=== PATIENT | male | born 1995 | race Native Hawaiian/Other Pacific Islander ===

== ENCOUNTER 2018-02-20 11:36 | Outpatient (CLI) | payer BC, OTHER ==
[2018-02-20 12:12] LABS: BASOPHILS % (AUTO) 0.4 % (0.0-2.0); EOSINOPHILS # (AUTO) 0.1 K/uL (0.0-0.7); EOSINOPHILS % (AUTO) 1.3 % (0.0-7.0); HEMATOCRIT 42.6 % (36.7-47.1); HEMOGLOBIN 13.3 g/dL (12.5-16.3); LYMPHOCYTES # (AUTO) 1.5 K/uL (20.0-40.0); LYMPHOCYTES % (AUTO) 36.4 % (20.5-51.5); MEAN CORPUSCULAR HEMOGLOBIN 20.2 uug (23.8-33.4); MEAN CORPUSCULAR HGB CONC 31 g/dL (32.5-36.3); MEAN CORPUSCULAR VOLUME 64.5 fL (73.0-96.2); MONOCYTES # (AUTO) 0.4 K/uL (2.0-10.0); MONOCYTES % (AUTO) 9.5 % (0.0-11.0); NEUTROPHILS # (AUTO) 2.1 K/uL (1.8-8.9); NEUTROPHILS % (AUTO) 52.4 % (38.5-71.5); PLATELET COUNT (AUTO) 242 K/uL (152-348)
[2018-02-20 12:13] LABS: RED BLOOD CELL COUNT(AUTO) 6.61 MIL/uL (4.06-5.63)
[2018-02-20 12:28] LABS: *BILIRUBIN,URIN NEGATIVE (NEGATIVE); *BLOOD, URINE NEGATIVE (NEGATIVE); *CLARITY,URINE CLEAR (CLEAR); *COLOR,URINE YELLOW (YELLOW); *KETONES,URINE NEGATIVE (NEGATIVE); *PROTEIN,URINE NEGATIVE (NEGATIVE); *UROBILINOGEN,URINE 0.2 E.U./dl (NORMAL); LEUKOCYTE ESTERASE ,URINE NEGATIVE (NEGATIVE); NITRITE, URINE NEGATIVE (NEGATIVE); UGLUCOSE NEGATIVE (NEGATIVE)
[2018-02-20 12:39] LABS: BACTERIA,URINE NONE SEEN /HPF (NONE SEEN); RBC,URINE 0-3 /HPF (0-3); SQUAMOUS EPITHELIAL CELL,UR FEW /HPF (NONE SEEN); WBC,URINE 0-3 /HPF (0-3)
[2018-02-20 12:43] LABS: THYROID STIMULATING HORMONE 1.927 mIU/mL (0.358-3.740)
[2018-02-20 13:01] LABS: BILIRUBIN,TOTAL 0.8 mg/dL (0.2-1.0); CREATININE 0.8 mg/dL (0.6-1.3); POTASSIUM 4.8 mmol/L (3.5-5.1); TOTAL PROTEIN, SERUM 7.6 g/dL (6.4-8.2); URIC ACID 5.9 mg/dL (3.5-7.2)
[2018-02-20 13:24] LABS: EOSINOPHILS % (MANUAL) 2 % (0-8); LYMPHOCYTES % (MANUAL) 35 % (20-40); MONOCYTES % (MANUAL) 12 % (2-10); NEUTROPHILS % (MANUAL) 51 % (42-75)
[2018-02-21 05:10] LABS: VIT D, 25-HYDROXY 28.4 ng/mL (30.0-100.0)
== END 2018-02-21 23:59 | disposition home or self-care (01) ==
LOC: LAB 11:36
DX: Z00.01 Encounter for general adult medical examination with abnormal findings (principal)
CPT/HCPCS: 36415; 82306; 84443; 84480; 84550; 85025

== ENCOUNTER 2018-04-09 17:11 | Emergency (ER) | payer BC ==
[~2018-04-09] VITALS: Ht 172.7 cm; Wt 64.4 kg
--- NOTE | 2018-04-09 17:56 | NUR ---
PT WAS EVALUATED BY DR MCCLELLAN. PT WAS D/C TO HOME. D/C INS TRUCTIONS GIVEN TO THE PT.
[2018-04-09 17:57] VITALS: BP 119/74
== END 2018-04-09 17:58 | disposition home or self-care (01) ==
LOC: ER 17:13
DX: S00.522A Blister (nonthermal) of oral cavity, initial encounter (principal); X58.XXXA Exposure to other specified factors, initial encounter; Y93.89 Activity, other specified; Y92.89 Other specified places as the place of occurrence of the external cause; Y99.8 Other external cause status
CPT/HCPCS: A4663

== ENCOUNTER 2018-09-19 18:22 | Emergency (ER) | payer BC, OTHER ==
[~2018-09-19] VITALS: Ht 172.7 cm; Wt 62.6 kg
--- NOTE | 2018-09-19 19:15 | NUR ---
Patient discharged to home in stable conditon. Written and verbal after care instructions given. Patient verbalizes understanding of instructions.
== END 2018-09-19 19:16 | disposition home or self-care (01) ==
LOC: ER 18:26
DX: J20.9 Acute bronchitis, unspecified (principal); K64.9 Unspecified hemorrhoids; B37.2 Candidiasis of skin and nail
CPT/HCPCS: 71045; A4663

== ENCOUNTER 2018-12-09 20:53 | Emergency (ER) | payer BC, OTHER ==
[~2018-12-09] VITALS: Ht 172.7 cm; Wt 65.8 kg
--- NOTE | 2018-12-09 21:05 | NUR ---
Dr. Bailey at bedside for MSE.
[2018-12-09] MEDS ORDERED: CYCLOBENZAPRINE HCL 10 MG TABLET ONE (21:14)
[2018-12-09] MEDS ORDERED: HYDROCODONE/APAP 5-325MG TABLET ONE (21:14)
[2018-12-09] MEDS ORDERED: CYCLOBENZAPRINE HCL 10 MG TABLET PO ONE (21:15)
[2018-12-09] MEDS ORDERED: HYDROCODONE/APAP 5-325MG TABLET PO ONE (21:15)
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
--- NOTE | 2018-12-09 21:38 | NUR ---
Pt transfered back from NAD. BRADLY
--- NOTE | 2018-12-09 22:16 | NUR ---
Patient discharged to home in stable conditon. Written and verbal after care instructions given. Patient verbalizes understanding of instructions. Pt ambulated out of ER in steady gait with mother who will drive home. All belongings with pt. VSS. NAD noted.
[2018-12-09 22:19] VITALS: BP 111/77
== END 2018-12-09 22:19 | disposition home or self-care (01) ==
LOC: ER 20:56
DX: S46.911A Strain of unspecified muscle, fascia and tendon at shoulder and upper arm level, right arm, initial encounter (principal); S29.012A Strain of muscle and tendon of back wall of thorax, initial encounter; V49.9XXA Car occupant (driver) (passenger) injured in unspecified traffic accident, initial encounter; Y93.89 Activity, other specified; Y92.89 Other specified places as the place of occurrence of the external cause; Y99.8 Other external cause status
CPT/HCPCS: 71045; 72072; 73030; A4663

== ENCOUNTER 2019-01-15 10:04 | Outpatient (CLI) | payer BC, OTHER ==
[2019-01-15 10:50] LABS: *BILIRUBIN,URIN NEGATIVE (NEGATIVE); *BLOOD, URINE NEGATIVE (NEGATIVE); *CLARITY,URINE CLEAR (CLEAR); *COLOR,URINE YELLOW (YELLOW); *KETONES,URINE NEGATIVE (NEGATIVE); *UROBILINOGEN,URINE 0.2 E.U./dl (NORMAL); BASOPHILS % (AUTO) 0.2 % (0.0-2.0); EOSINOPHILS % (AUTO) 0.9 % (0.0-7.0); HEMATOCRIT 45.8 % (36.7-47.1); HEMOGLOBIN 14.3 g/dL (12.5-16.3); LEUKOCYTE ESTERASE ,URINE NEGATIVE (NEGATIVE); LYMPHOCYTES # (AUTO) 1.9 K/uL (20.0-40.0); LYMPHOCYTES % (AUTO) 47.5 % (20.5-51.5); MEAN CORPUSCULAR HEMOGLOBIN 20.7 uug (23.8-33.4); MEAN CORPUSCULAR HGB CONC 31 g/dL (32.5-36.3); MEAN CORPUSCULAR VOLUME 66.1 fL (73.0-96.2); MONOCYTES # (AUTO) 0.3 K/uL (2.0-10.0); MONOCYTES % (AUTO) 6.7 % (0.0-11.0); NEUTROPHILS # (AUTO) 1.8 K/uL (1.8-8.9); NEUTROPHILS % (AUTO) 44.7 % (38.5-71.5); NITRITE, URINE NEGATIVE (NEGATIVE); PH,URINE 6.5 (5.0-8.0); PLATELET COUNT (AUTO) 225 K/uL (152-348); UGLUCOSE NEGATIVE (NEGATIVE); WHITE BLOOD COUNT (AUTO) 3.9 K/uL (3.6-10.2)
[2019-01-15 10:51] LABS: RED BLOOD CELL COUNT(AUTO) 6.93 MIL/uL (4.06-5.63)
[2019-01-15 11:14] LABS: EOSINOPHILS % (MANUAL) 2 % (0-8); LYMPHOCYTES % (MANUAL) 53 % (20-40); MONOCYTES % (MANUAL) 8 % (2-10); NEUTROPHILS % (MANUAL) 37 % (42-75); THYROID STIMULATING HORMONE 1.47 mIU/mL (0.358-3.740)
[2019-01-15 11:31] LABS: BILIRUBIN,TOTAL 0.6 mg/dL (0.2-1.0); CREATININE 0.9 mg/dL (0.6-1.3); POTASSIUM 4.1 mmol/L (3.5-5.1); TOTAL PROTEIN, SERUM 7.8 g/dL (6.4-8.2); URIC ACID 5.8 mg/dL (3.5-7.2)
[2019-01-16 08:06] LABS: TRIIODOTHYRONINE, FREE 3.3 pg/mL (2.0-4.4)
[2019-01-19 01:10] LABS: *VITAMIN D 25-OH, D2 7.1 ng/mL (.)
== END 2019-01-15 23:59 | disposition home or self-care (01) ==
LOC: LAB 10:04
DX: R53.83 Other fatigue (principal)
CPT/HCPCS: 36415; 83550; 84443; 84481; 84550; 85025